=== PATIENT | female | born 1995 | race Caucasian/White ===

== ENCOUNTER → 2020-08-18 | Outpatient (CLI) | payer OTHER | LOC: KOH-I 09:43 | DX: M79.672 Pain in left foot (principal); S92.512A Displaced fracture of proximal phalanx of left lesser toe(s), initial encounter for closed fracture | CPT/HCPCS: 73630 ==

== ENCOUNTER → 2021-07-16 | Outpatient (CLI) | payer BC | LOC: KOH-I 12:14 | DX: M54.50 Low back pain, unspecified (principal) | CPT/HCPCS: 71130; 72100 ==